=== PATIENT | female | born 1990 | race Caucasian/White ===

== ENCOUNTER → 2019-04-14 | Day surgery (SDC) | payer OTHER ==
[~2019-04-14] MED LIST: FENTANYL CITRATE/PF 100MCG/2 ML INJ ONE; MIDAZOLAM HCL 2 MG/2 ML VIAL ONE; PROPOFOL IV EMULSION 10 MG/ML 20 ML VIAL ONE
[2019-04-14 12:20] VITALS: BP 106/74
--- NOTE | 2019-04-14 19:19 | Operative Report ---
DATE OF PROCEDURE: 04/14/2019 SURGEON: Philipp Mcclain MD PROCEDURE: EGD with balloon dilatation, pyloric channel stricture, and biopsies. INDICATION FOR PROCEDURE: Recurrent nausea, vomiting, weight loss. MEDICATIONS: The patient was done under MAC, please see anesthesiologist's note. PROCEDURE IN DETAIL: With the patient in left lateral decubitus position, flexible fiberoptic Olympus gastroscope was introduced into the esophagus under direct visualization without any difficulty. There was some patchy erythema noted in distal esophagus. The scope was then advanced with ease into the stomach. Mucosa overlying the antrum and the body revealed some patchy erythema and [id number] edema and biopsies were obtained and sent to stain for H pylori. A moderate amount of retained undigested food was also noted in the stomach. The pylorus was strictured and not traversed with the scope. It was dilated to size 20 mm per TTS balloon dilators. The scope was then advanced with ease all the way to the second portion of the duodenum. Biopsies were obtained from the proximal second portion and duodenal bulb to rule out sprue. The scope was then withdrawn back into the stomach and retroflexed and mucosa overlying the fundus and cardia appeared to be within normal limits. The proximal two-thirds of the body of the stomach along the greater curvature was not visualized endoscopically due to the presence of retained undigested food. The scope was then straightened out. It was subsequently withdrawn. The patient tolerated the procedure well. IMPRESSION: 1. Distal esophagitis. 2. Gastritis, biopsied. Biopsies sent to stain for H pylori. 3. Moderate amount of undigested return food stuff precluding visualization of the proximal two-thirds of the body along the greater curvature. 4. Pyloric channel stricture dilated to size 20 mm per TTS balloon dilators. 5. Rule out sprue. PLAN: Follow up histology. Initiate Protonix 40 mg one p.o. q.a.m. a.c. Philipp Mcclain MD [facility] [place]/MODL /[id number]
== END | disposition home or self-care (01) ==
LOC: OR 08:52
PROVIDERS: ATTEND Internal Medicine Gastroenterology
DX: K29.60 Other gastritis without bleeding (principal); K20.9 Esophagitis, unspecified; K31.89 Other diseases of stomach and duodenum; K31.1 Adult hypertrophic pyloric stenosis; R19.7 Diarrhea, unspecified; D72.820 Lymphocytosis (symptomatic); R63.4 Abnormal weight loss; R03.0 Elevated blood-pressure reading, without diagnosis of hypertension
CPT/HCPCS: 43239; 43450; 81025; J2250; J3010